=== PATIENT | male | born 1960 | race Caucasian/White ===

== ENCOUNTER → 2019-09-07 | Outpatient (CLI) | payer BC ==
[~2019-09-07] MED LIST: ADULT LOW DOSE81 MG PO; AMARYL2 MG PO; BACTRIM DS TAB1 EACH PO; CIPROFLOXACIN500 M1 PO; FISHOIL; GLY-OXIDE15 ML MM; HYDROCODONE-AP1 EA11 PO; METFORMIN ER 5500 MG PO; NORCO 5-325 TA1 EACH PO; PERCOCET 5-3251 EACH PO; PREDNISONE 20 M20 MG PO; PROBIOTIC1 EACH PO; VALACYCLOVIR1000 MG PO; VICTOZA0.6 MG/0.1; ZOCOR40 MG PO
== END ==
LOC: SJCVCIMAG 09:46
DX: R00.0 Tachycardia, unspecified (principal); I25.10 Atherosclerotic heart disease of native coronary artery without angina pectoris; E78.5 Hyperlipidemia, unspecified; I65.23 Occlusion and stenosis of bilateral carotid arteries; E11.9 Type 2 diabetes mellitus without complications; F17.210 Nicotine dependence, cigarettes, uncomplicated; Z79.82 Long term (current) use of aspirin; Z79.899 Other long term (current) drug therapy; Z98.61 Coronary angioplasty status

== ENCOUNTER → 2020-09-15 | Outpatient (CLI) | payer BC | LOC: SJCVCIMAG 15:21 | PROVIDERS: ATTEND Internal Medicine | DX: I65.23 Occlusion and stenosis of bilateral carotid arteries (principal); E11.9 Type 2 diabetes mellitus without complications; I25.10 Atherosclerotic heart disease of native coronary artery without angina pectoris; E78.5 Hyperlipidemia, unspecified; F17.200 Nicotine dependence, unspecified, uncomplicated ==